=== PATIENT | male | born 1985 | race Caucasian/White ===

== ENCOUNTER 2021-11-20 23:43 | Emergency (ER) | payer BC ==
[~2021-11-20] VITALS: Ht 162.6 cm; Wt 61.2 kg
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
--- NOTE | 2021-11-20 23:50 | NUR ---
Patient to ER chair [facility] to [facility] for evaluation. Side rails up.Triage by Hernan in the [facility] way.
[2021-11-20 23:52] VITALS: BP_SYST 114
--- NOTE | 2021-11-21 00:02 | NUR ---
DR. HA AT BEDSIDE.
[2021-11-21] MEDS ORDERED: IBUPROFEN 600 MG TABLET PO ONE (00:30)
--- NOTE | 2021-11-21 00:56 | NUR ---
Patient given written and verbal discharge instructions and verbalizes understanding. ER MD discussed with patient the results and treatment provided. Patient in stable condition. ID arm band removed. IV catheter removed intact and dressing applied, no active bleeding. Rx of N/A given. Patient educated on pain management and to follow up with PMD. Pain Scale . Opportunity for questions provided and answered. Medication side effect fact sheet provided.
== END 2021-11-21 00:56 | disposition home or self-care (01) ==
LOC: EDBD 23:43 → SED 23:43
DX: S01.512A Laceration without foreign body of oral cavity, initial encounter (principal); S20.212A Contusion of left front wall of thorax, initial encounter; F17.210 Nicotine dependence, cigarettes, uncomplicated; Z79.899 Other long term (current) drug therapy; Y04.8XXA Assault by other bodily force, initial encounter; Y93.89 Activity, other specified; Y92.89 Other specified places as the place of occurrence of the external cause; Y99.8 Other external cause status
CPT/HCPCS: 71045; 99283